=== PATIENT | male | born 1965 | race Caucasian/White ===

== ENCOUNTER → 2020-05-31 12:06 | Outpatient (CLI) | payer MEDICARE, MEDICAID | END | disposition home or self-care (01) | LOC: D.LAB 12:06 | PROVIDERS: ATTEND Internal Medicine Rheumatology | DX: M05.9 Rheumatoid arthritis with rheumatoid factor, unspecified (principal) ==

== ENCOUNTER → 2020-06-06 16:07 | Outpatient (CLI) | payer MEDICARE, MEDICAID | END | disposition home or self-care (01) | LOC: D.LAB 16:07 | PROVIDERS: ATTEND Internal Medicine Pulmonary Disease | DX: J18.9 Pneumonia, unspecified organism (principal) ==

== ENCOUNTER 2020-06-12 09:36 | Day surgery (SDC) | payer MEDICARE ==
[~2020-06-12] VITALS: Ht 175.3 cm; Wt 62.7 kg
[2020-06-12 09:19] LABS: BASOPHILS 0.2 % (0-2); EOSINOPHILS 1.2 % (0-7); HEMATOCRIT 35.9 % (42.0-54.0); HEMOGLOBIN 12.6 g/dL (13.5-17.5); IMMATURE GRANULOCYTES 2.2 % (0-5); LYMPHOCYTE ABS# 0.58 10x3/uL (1.32-3.57); MCH 28.2 pg (26.0-34.0); MCHC 35.1 g/dL (31.0-37.0); MCV 80.3 fL (80.0-100.0); MEAN PLATELET VOLUME 10.1 fL (7.4-10.4); MONOCYTES 10.7 % (2-11); NEUTROPHIL ABS# 2.96 10x3/uL (1.78-5.38); NEUTROPHILS 71.7 % (40-80); PLATELET COUNT 148 10x3/uL (130-400); RBC 4.47 10x6/uL (4.20-6.10); RDW 14.8 % (11.5-14.5); WBC 4.1 10x3/uL (4.8-10.8)
[2020-06-12 10:00] LABS: APTT 26.9 SECONDS (22.8-39.4); INR 1.24 (0.85-1.17); PROTIME 14.5 SECONDS (11.6-15.0)
[2020-06-12] MEDS ORDERED: COMBIVENT RESPIM4 GM INH (10:22)
[2020-06-12 10:30] VITALS: BP 106/66; Ht 175.3 cm; Wt 62.7 kg
--- NOTE | 2020-06-12 15:40 | NUR ---
DR CHAWLA PAGED REGARDING PATIENT'S FEVER AND O2 SAT 89% ON 3 LPM NC. TEMPT 101.3 [address] CHAWLA, ORDERS RECEIVED AND NOTED
--- NOTE | 2020-06-12 16:04 | NUR ---
O2 SAT ON ROOM AIR 83%, AT REST
--- NOTE | 2020-06-12 16:50 | NUR ---
DR CHALWA HERE TO SEE PATIENT, ENTERS ROOM AND SPEAKS WITH PATIENT AND SIGNIFICANT OTHER. DR CHAWLA AWARE PATIENT HAS FEVER OF 101.6 AND THAT O2 SAT IS VARIABLE, LOW 89% ON 3 LPM NC AND IMPROVES WITH INCENTIVE SPIROMETRY UP TO 93% FOR A SHORT TIME. DR CHAWLA STATES THAT HE DOESN'T WANT O2 HIGHER THAN 2 LPM AND PATIENT MAY BE DISCHARGED HOME DESPITE FEVER LONG HE HAS O2 AND AFTER ORDERED INHALER IS DONE BY RESPIRATORY.
--- NOTE | 2020-06-12 17:40 | NUR ---
LEFT HAND PIV DC'D WITH TIP INTACT. DISCHARGE INSTRUCTIONS REVIEWED WITH PATIENT AND SIGNIFICANT OTHER. PATIENT DRESSED IN PERSONAL CLOTHING. DISCHARGED HOME VIA WHEELCHAIR TO PRIVATE VEHICLE AT 1745
[2020-06-13 13:12] LABS: FUNGUS STAIN Final report (())
[2020-06-13 14:10] LABS: ACID FAST SMEAR Positive (()); AFB SPECIMEN PROCESSING Concentration (())
== END 2020-06-12 17:45 | disposition home or self-care (01) ==
LOC: D.OPS 09:36
PROVIDERS: ATTEND Internal Medicine Pulmonary Disease
DX: R93.89 Abnormal findings on diagnostic imaging of other specified body structures (principal); J98.4 Other disorders of lung; J18.9 Pneumonia, unspecified organism; R91.8 Other nonspecific abnormal finding of lung field; R06.09 Other forms of dyspnea; M06.9 Rheumatoid arthritis, unspecified